=== PATIENT | female | born 1995 | race Caucasian/White ===

== ENCOUNTER 2021-07-29 14:46 | Emergency (ER) | payer OTHER ==
[2021-07-29 16:25] LABS: BASO % 0.2 % (0.0-1.0); EOS # 0.3 10^3/uL (0.0-0.5); EOS % 2.3 % (0.0-3.0); HEMATOCRIT 36.9 % (36.0-47.0); HEMOGLOBIN 12.2 g/dl (12.0-15.5); LYMPH # 2.8 10^3/uL (1.5-5.0); LYMPH % 21.2 % (24.0-44.0); MEAN CORPUSCULAR HEMOGLOBIN 28.6 pg (27.0-33.0); MEAN CORPUSCULAR HGB CONC 33.1 g/dl (32.0-36.5); MEAN CORPUSCULAR VOLUME 86.4 fl (80.0-96.0); MONO # 0.5 10^3/uL (0.0-0.8); NEUTROPHILS # 9.6 10^3/uL (1.5-8.5); NEUTROPHILS % 71.9 % (36.0-66.0); PLATELET COUNT, AUTOMATED 314 10^3/uL (150-450); RED BLOOD COUNT 4.27 10^6/uL (4.00-5.40); WHITE BLOOD COUNT 13.4 10^3/uL (4.0-10.0)
[2021-07-29 16:32] LABS: BLOOD UREA NITROGEN 7 MG/DL (7-18); CALCIUM LEVEL 8.8 MG/DL (8.5-10.1); CARBON DIOXIDE LEVEL 25 MEQ/L (21-32); CHLORIDE LEVEL 104 MEQ/L (98-107); CREATININE FOR GFR 0.74 MG/DL (0.55-1.30); GLOMERULAR FILTRATION RATE > 60.0 (>60); GLUCOSE, FASTING 96 MG/DL (70-100); POTASSIUM SERUM 3.7 MEQ/L (3.5-5.1); SODIUM LEVEL 137 MEQ/L (136-145)
[2021-07-29 17:54] LABS: FREE T4 1.03 NG/DL (0.76-1.46)
[2021-07-29 20:15] LABS: GC DNA AMPLIFICATION NEGATIVE (NEGATIVE)
[2021-07-29] MEDS ORDERED: ONDANSETRON 4MG/2ML VIAL IV ONE (20:45)
[2021-07-29] MEDS ORDERED: estradioL 1 MG TAB PO SCH (20:50)
[2021-07-29] MEDS ORDERED: YAZ1TAB PO ×2 (20:50→20:52)
[2021-07-29 21:18] VITALS: BP 137/78
[2021-07-30] MEDS ORDERED: estradioL 1 MG TAB PO SCH (09:00)
== END 2021-07-29 21:45 | disposition home or self-care (01) ==
LOC: M ED 14:46
DX: N93.8 Other specified abnormal uterine and vaginal bleeding (principal); Z79.3 Long term (current) use of hormonal contraceptives
CPT/HCPCS: 76856; 80048; 81001; 84439; 84443; 84702; 85025; 86850; 86900; 86901; 87210; 87661; 93976; 96374; 99284; J2405